=== PATIENT | male | born 2000 | race African-American/Black ===

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

== ENCOUNTER 2021-02-12 23:22 | Emergency (ER) | payer SELFPAY ==
[~2021-02-12] VITALS: Ht 190.5 cm; Wt 95.5 kg
[2021-02-12 23:27] VITALS: Ht 190.5 cm; Wt 95.5 kg
[2021-02-13] MEDS ORDERED: HYDROCODONE-AC1 EAC2 PO (02:27)
[2021-02-13] MEDS ORDERED: ZOFRAN ODT4 MG/UDTAB PO (02:27)
[2021-02-13 02:41] VITALS: BP 123/85
== END 2021-02-13 02:41 | disposition home or self-care (01) ==
LOC: D.ER 23:22
DX: S42.101A Fracture of unspecified part of scapula, right shoulder, initial encounter for closed fracture (principal); Y04.2XXA Assault by strike against or bumped into by another person, initial encounter; Y93.9 Activity, unspecified; Y92.9 Unspecified place or not applicable